=== PATIENT | female | born 1985 | race Caucasian/White ===

== ENCOUNTER → 2023-06-03 14:04 | Outpatient (REF) | payer OTHER, SELFPAY | LOC: RSP 14:04 | PROVIDERS: ATTENDING PHYSICIAN Internal Medicine Rheumatology; FAMILY PHYSICIAN Family Medicine | DX: M34.1 CR(E)ST syndrome (principal) | CPT/HCPCS: 94727; 94729; 88738; 94010 ==

== ENCOUNTER → 2023-06-14 06:56 | Outpatient (REF) | payer OTHER, SELFPAY | LOC: HWRCS 06:56 | PROVIDERS: ATTENDING PHYSICIAN Internal Medicine Rheumatology; FAMILY PHYSICIAN Family Medicine | DX: I27.20 Pulmonary hypertension, unspecified (principal); M34.1 CR(E)ST syndrome | CPT/HCPCS: 93306 ==